=== PATIENT | male | born 2000 | race Caucasian/White ===

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

== ENCOUNTER 2021-03-08 08:00 | Outpatient (CLI) | payer MEDICAID, OTHER | END 2021-03-08 23:59 | disposition home or self-care (01) | LOC: LAB.S 08:00 | PROVIDERS: ATTEND Physician Assistant Medical | DX: J34.89 Other specified disorders of nose and nasal sinuses (principal); R07.0 Pain in throat; Z20.822 Contact with and (suspected) exposure to COVID-19 | CPT/HCPCS: 87070; 87077 ==

== ENCOUNTER 2021-09-02 08:00 | Outpatient (CLI) | payer MEDICAID, OTHER | END 2021-09-02 23:59 | disposition home or self-care (01) | LOC: LAB.S 08:00 | PROVIDERS: ATTEND Emergency Medicine | DX: L03.113 Cellulitis of right upper limb (principal) | CPT/HCPCS: 87070; 87181; 87205 ==

== ENCOUNTER 2021-10-23 08:00 | Outpatient (CLI) | payer MEDICAID | END 2021-10-23 23:59 | disposition home or self-care (01) | LOC: LAB 08:00 | PROVIDERS: ATTEND Physician Assistant Medical | DX: J02.9 Acute pharyngitis, unspecified (principal) | CPT/HCPCS: 87070 ==

== ENCOUNTER 2022-04-20 15:18 | Emergency (ER) | payer MEDICAID ==
[2022-04-20 15:31] VITALS: BP 125/74
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
[2022-04-20] MEDS ORDERED: IBUPROFEN 600 MG TABLET PO STA (16:56)
[2022-04-20] MEDS ORDERED: HYDROcod/ACETAM 5/325 MG TABLET PO STA (16:56)
[2022-04-20] MEDS ORDERED: HYDROcod/ACET 5/325 Prepack 4 PO STA (16:56)
[2022-04-20] MEDS ORDERED: CEPHALEXIN 250 MG Prepack 8 CAP BOTTLE PO STA (16:58)
[2022-04-20] MEDS ORDERED: cephALEXin 250 MG CAPSULE PO STA (16:58)
[2022-04-20] MEDS ORDERED: MUPIROCIN 2% OINT 1 GM TOP STA (16:59)
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
== END 2022-04-20 18:06 | disposition home or self-care (01) ==
LOC: ED 15:18
DX: S50.812A Abrasion of left forearm, initial encounter (principal); S30.811A Abrasion of abdominal wall, initial encounter; S20.212A Contusion of left front wall of thorax, initial encounter; S51.012A Laceration without foreign body of left elbow, initial encounter; L08.9 Local infection of the skin and subcutaneous tissue, unspecified; V28.49XA Other motorcycle driver injured in noncollision transport accident in traffic accident, initial encounter; Y93.I9 Activity, other involving external motion
CPT/HCPCS: 71101; 73080; 99284; A9270

== ENCOUNTER 2022-04-24 14:35 | Outpatient (CLI) | payer MEDICAID | END 2022-04-24 14:36 | disposition critical access hospital (66) | LOC: EMS 14:35 | DX: R06.00 Dyspnea, unspecified (principal); R06.2 Wheezing; L50.0 Allergic urticaria; R49.0 Dysphonia | CPT/HCPCS: A0425; A0427; A0999 ==

== ENCOUNTER 2022-04-24 15:10 | Emergency (ER) | payer MEDICAID ==
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
[2022-04-24 16:55] VITALS: BP 111/70
== END 2022-04-24 16:54 | disposition home or self-care (01) ==
LOC: EDUNIT# → ED 15:10 → SUPCPDRO 15:10 → ED 16:54
DX: T78.2XXA Anaphylactic shock, unspecified, initial encounter (principal); S31.000A Unspecified open wound of lower back and pelvis without penetration into retroperitoneum, initial encounter; S51.002A Unspecified open wound of left elbow, initial encounter; V29.99XA Rider (driver) (passenger) of other motorcycle injured in unspecified traffic accident, initial encounter
CPT/HCPCS: 99283; 99284

== ENCOUNTER 2023-11-12 01:04 | Emergency (ER) | payer MEDICAID, OTHER ==
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
[2023-11-12] MEDS: KETOROLAC 30 MG/ML VIAL IM STA (01:35)
[2023-11-12 01:46] VITALS: BP 147/97; O2SAT 98
== END 2023-11-12 01:46 | disposition home or self-care (01) ==
LOC: ED 01:04
DX: S60.122A Contusion of left index finger with damage to nail, initial encounter (principal); W23.0XXA Caught, crushed, jammed, or pinched between moving objects, initial encounter
CPT/HCPCS: 11740; 99283

== ENCOUNTER 2023-11-12 16:15 | Emergency (ER) | payer SELFPAY ==
--- NOTE | 2023-11-12 16:30 | ED Physician Documentation ---
PD HPI UPPER EXT INJURY - Stated complaint Stated Complaint: LT FINGER INJ - Chief complaint Chief Complaint: Ext Problem - Additonal information Additional information: 23-year-old male was here last night for a crush injury to left index finger. Patient says that he excellently crushed his finger at work and there was a fingernail subungual hematoma that was drained successfully last night but unfortunately it appears to have scabbed over and he is experiencing increase pain and pressure. PD PAST MEDICAL HISTORY - Past Medical History Past Medical History: No Cardiovascular: None Respiratory: None Neuro: None Endocrine/Autoimmune: None GI: None : None HEENT: None Psych: None Musculoskeletal: None Derm: None - Past Surgical History Past Surgical History: No - Present Medications Home Medications: Ambulatory Orders Medication Instructions Recorded Confirmed HYDROcod/ACETAM 5/325 [[place] 5/325] 1 tablet PO Q6H PRN #10 tablet 11/12/23 - Allergies Allergies/Adverse Reactions: Allergies Allergy/AdvReac Type Severity Reaction Status Date / Time mupirocin Allergy Severe Anaphylaxis Verified 11/12/23 16:25 - Social History Does the pt smoke?: No Smoking Status: Never smoker Does the pt drink ETOH?: No Does the pt have substance abuse?: No - Immunizations Immunizations are current?: Yes - POLST Patient has POLST: No PD ED PE NORMAL - Vitals Vital signs reviewed: Yes - General General: Alert and oriented X 3, No acute distress, Well developed/nourished - Derm Derm: Other (left index finger subungal hematoma) - Extremities Extremities: Other (Left index finger: tendereness, swelling, erythema to left index DIP) Results - Vitals Vitals: Vital Signs - 24 hr 11/12/23 16:21 Temperature 36.1 C L Heart Rate 88 Respiratory 16 Rate Blood Pressure 141/90 H O2 Saturation 100 Oxygen O2 Source Room air - Rads (name of study) Left hand x-ray Relevant Findings:: Final report received, EMP independent interpretation of test, Other (No acute bony abnormalities or findings) PD Medical Decision Making - ED course ED course: 23-year-old male presents emergency room for worsening left index finger pain and swelling. Patient was here last night with a subungual hematoma and with cauterization 1 hole was drilled and with blood extraction. Patient says over time his pain has been getting significantly worse. He has what appears to be new blood collection underneath the fingernail over about 90% of the nail. Digital block was complete with complete resolution of pain and 2 additional cauterization holes were placed in the patient's fingernail and a very large amount of blood was extracted. I am prescribing a short course of short-acting opioid pain medication for this patient. I have reviewed the patients [employer] and no concerning findings were noted. I have discussed that the opioids are for short term therapy only, and will not be refilled from the ED. patient was told to keep the fingernail covered with bacitracin so that it does not scab over again and was told to come back to the ER if any worsening symptoms and was taught signs symptoms of infection. Departure - Departure Disposition: 01 Home, Self Care Clinical Impression: Subungual hematoma of digit of hand Instructions: ED Hematoma Prescriptions: HYDROcod/ACETAM 5/325 [[place] 5/325] 1 tablet PO Q6H PRN #10 tablet PRN Reason: Pain Comments: Thank you for trusting us with your care. We have placed 2 new holes in your left index finger nail and got a lot of additional blood out of it. Keep this area covered and moist I sent a prescription for [place] to your preferred pharmacy your digital block should be working for the next 8 to 12 hours. I am prescribing a short course of short-acting opioid pain medication for this patient. I have reviewed the patients [employer] and no concerning findings were noted. I have discussed that the opioids are for short term therapy only, and will not be refilled from the ED. Forms: PCP List Discharge Date/Time: 11/12/23 17:37
[2023-11-12 16:37] VITALS: BP 141/90; O2SAT 100
[2023-11-12] MEDS: BUPIVACAINE 0.5% PF 10 ML VIAL SUBQ STA (16:57)
--- NOTE | 2023-11-12 17:00 | XRAY Report ---
PROCEDURE: Hand 1-2V LT INDICATIONS: index finger injury to to crush mechanism TECHNIQUE: 2 views of the hand(s) acquired. COMPARISON: None. FINDINGS: Bones: No fractures or dislocations. No suspicious bony lesions. Soft tissues: No suspicious soft tissue calcifications or masses. IMPRESSION: No acute bony abnormality. Reviewed by: Michael Carlson MD on 11/12/2023 4:58 PM PDT Approved by: Michael Carlson MD on 11/12/2023 4:58 PM PDT Station ID: [id number]
== END 2023-11-12 17:37 | disposition home or self-care (01) ==
LOC: ED 16:15
DX: S60.122A Contusion of left index finger with damage to nail, initial encounter (principal); X58.XXXA Exposure to other specified factors, initial encounter
CPT/HCPCS: 11740